=== PATIENT | female | born 1985 | race Caucasian/White ===

== ENCOUNTER → 2017-03-24 | Outpatient (CLI) | payer OTHER ==
[~2017-03-24] MED LIST: ALBUTEROL 0.5ML INH; ALBUTEROL17 GM INH; ALLEGRA-D1 TAB.SR3 PO; BACTRIM DS TABL1 TA1 PO; BENADRYL25 M3 PO; BENTYL20 M1 PO; CARAFATE1 G PO; CIPRO PO; CLONAZEPAM PO; CLONAZEPAM0.5 MG PO; DELTASONE20 MG PO; DIAZEPAM PO; FLEXERIL PO; FLONASE 0.05% N16 GM INH; HYDROCODON-ACE1 EAC7 PO; HYDROCODON-ACE1 EAC9 PO; HYDROCODON-ACE1 EACH PO; KLONOPIN; KLONOPIN0.5 M1 PO; KLONOPIN0.5 MG PO; LEVAQUIN PO; LORTAB 7.51 TAB 7.5/ PO; MOTRIN PO; MOTRIN600 MG PO; MUCINEX FAST-M1 EAC4 PO; MYLANTA PO; NAPROXEN PO; NEXIUM PO; PHENERGAN12.5 MG; PHENERGAN25 MG PO; PREDNISONE PO; PREDNISONE10 MG/DOSE PO; PRENATAL1 TA1 PO; PRILOSEC20 MG PO; PRILOSEC40 MG PO; PROTONIX; PROTONIX PO; ROBAXIN500 MG PO; VICODIN 5/500 T1 TAB PO; VOLTAREN75 MG PO; WELLBUTRIN SR150 MG PO; ZOFRAN ODT4 MG PO; ZOFRAN PO; ZOLOFT50 MG PO
[2017-03-24 12:17] LABS: BASOPHIL# 0.1 X10e3 (0-0.3); EOSINOPHIL# 0.1 X10e3 (0-0.7); EOSINOPHIL% 2.1 % (0.0-7.0); HEMATOCRIT 39.6 % (35.0-45.0); HEMOGLOBIN 13.2 gm/dL (12.0-16.0); LYMPHOCYTE# 2.3 X10e3 (1.0-3.5); LYMPHOCYTE% 41.9 % (17.0-45.0); MEAN CELL VOLUME 92.5 FL (83-96); MEAN CORPUSCULAR HEMOGLOBIN 30.9 PG (28-34); MEAN CORPUSCULAR HGB CONC 33.3 g/dL (30-36); MEAN PLATELET VOLUME 8.8 FL (6.5-11.5); MONOCYTE# 0.5 X10e3 (0-1.0); MONOCYTE% 9.3 % (3.0-12.0); NEUTROPHIL# 2.5 X10e3 (1.5-7.1); NEUTROPHIL% 45.7 % (40-75); PLATELET COUNT 239 X10e3 (140-420); RED BLOOD COUNT 4.27 X10e (3.90-5.30); RED CELL DISTRIBUTION WIDTH 13.2 % (11.0-15.5); WHITE BLOOD COUNT 5.4 X10e3 (4.0-10.5)
[2017-03-24 12:20] LABS: DIFF IND NO
[2017-03-24 13:03] LABS: ALBUMIN SERUM 4.4 g/dL (3.5-5.0); CALCIUM SERUM 9.5 mg/dL (8.4-10.2); CREATININE SERUM 0.7 mg/dL (0.6-1.4); GLOM FILT RATE Estimated 116.3 mL/min (>60); POTASSIUM 4.9 mmol/L (3.5-5.1); PROTEIN TOTAL SERUM 7.2 g/dL (6.0-8.3)
== END | disposition home or self-care (01) ==
LOC: CLAB 11:31
PROVIDERS: Nurse Practitioner
DX: R10.13 Epigastric pain (principal)
CPT/HCPCS: 36415; 80053; 82150; 83690; 85025

== ENCOUNTER 2017-04-02 09:29 | Emergency (ER) | payer OTHER ==
[~2017-04-02 09:29] MED LIST changes: -PHENERGAN12.5 MG; -PROTONIX
[2017-04-02] MEDS ORDERED: PROTONIX (09:41)
[2017-04-02 10:27] LABS: URINE SOURCE CLEAN CATCH
[2017-04-02 10:30] LABS: URINE APPEARANCE CLEAR; URINE BILIRUBIN NEG (NEG); URINE BLOOD 3+ (NEG); URINE COLOR YELLOW; URINE GLUCOSE NEG (NORM); URINE KETONE NEG (NEG); URINE LEUKOCYTE ESTERASE NEG (NEG); URINE NITRATE NEG (NEG); URINE PH 5.5 (5-8); URINE PROTEIN NEG (NEG); URINE SPECIFIC GRAVITY >=1.030 (1.003-1.035); URINE UROBILINOGEN 0.2 MG/DL (NORM)
[2017-04-02 10:31] LABS: MICRO INDICATED? YES
[2017-04-02 10:38] LABS: CULTURE INDICATED? NO; URINE BACTERIA NEG (NEG); URINE RBC 0-2 /[HPF] (0-2); URINE WBC 0-2 /[HPF] (0-5)
[2017-04-02 10:50] LABS: BUN/CREATININE RATIO 11.25; CALCIUM SERUM 8.9 mg/dL (8.4-10.2); CREATININE SERUM 0.8 mg/dL (0.6-1.4); POTASSIUM 3.8 mmol/L (3.5-5.1)
== END 2017-04-02 11:23 | disposition home or self-care (01) ==
LOC: SED 09:29
PROVIDERS: Emergency Medicine
DX: K29.00 Acute gastritis without bleeding (principal); K21.9 Gastro-esophageal reflux disease without esophagitis; F41.9 Anxiety disorder, unspecified; F17.210 Nicotine dependence, cigarettes, uncomplicated; Z90.49 Acquired absence of other specified parts of digestive tract
CPT/HCPCS: 36415; 80048; 81003; 84703; 96361; 96374; 96375; 99284; J2405

== ENCOUNTER 2017-06-24 16:49 | Emergency (ER) | payer OTHER ==
[~2017-06-24 16:49] MED LIST changes: +PROTONIX
[2017-06-24] MEDS ORDERED: PHENERGAN12.5 MG (16:56)
[2017-06-24 18:14] LABS: URINE SOURCE CLEAN CATCH
[2017-06-24 18:16] LABS: URINE APPEARANCE CLEAR; URINE BILIRUBIN NEG (NEG); URINE BLOOD 3+ (NEG); URINE COLOR YELLOW; URINE GLUCOSE NEG (NORM); URINE KETONE NEG (NEG); URINE LEUKOCYTE ESTERASE NEG (NEG); URINE NITRATE NEG (NEG); URINE PROTEIN NEG (NEG); URINE UROBILINOGEN 0.2 MG/DL (NORM)
[2017-06-24 18:23] LABS: MICRO INDICATED? YES
[2017-06-24 18:30] LABS: BASOPHIL# 0.1 X10e3 (0-0.3); EOSINOPHIL# 0.1 X10e3 (0-0.7); EOSINOPHIL% 0.6 % (0.0-7.0); HEMATOCRIT 41.9 % (35.0-45.0); HEMOGLOBIN 14.3 gm/dL (12.0-16.0); LYMPHOCYTE# 2.7 X10e3 (1.0-3.5); LYMPHOCYTE% 30.2 % (17.0-45.0); MEAN CELL VOLUME 92.9 FL (83-96); MEAN CORPUSCULAR HEMOGLOBIN 31.7 PG (28-34); MEAN CORPUSCULAR HGB CONC 34.1 g/dL (30-36); MEAN PLATELET VOLUME 8.6 FL (6.5-11.5); MONOCYTE# 0.6 X10e3 (0-1.0); MONOCYTE% 6.8 % (3.0-12.0); NEUTROPHIL# 5.4 X10e3 (1.5-7.1); NEUTROPHIL% 61.4 % (40-75); PLATELET COUNT 280 X10e3 (140-420); RED BLOOD COUNT 4.51 X10e (3.90-5.30); RED CELL DISTRIBUTION WIDTH 13.1 % (11.0-15.5); WHITE BLOOD COUNT 8.8 X10e3 (4.0-10.5)
[2017-06-24 18:31] LABS: URINE BACTERIA 1+ (NEG); URINE MUCUS PRESENT; URINE SQUAMOUS EPITHELIAL CELL OCCAS /[HPF]; URINE TRANSITIONAL EPI CELLS FEW /[HPF]; URINE WBC 0-2 /[HPF] (0-5)
[2017-06-24 18:33] LABS: DIFF IND NO
[2017-06-24 18:49] LABS: BUN/CREATININE RATIO 18.33; CALCIUM SERUM 8.5 mg/dL (8.4-10.2); CREATININE SERUM 0.6 mg/dL (0.6-1.4); GLOM FILT RATE Estimated 122.3 mL/min (>60); POTASSIUM 3.8 mmol/L (3.5-5.1)
== END 2017-06-24 19:57 | disposition home or self-care (01) ==
LOC: SED 16:49
PROVIDERS: Emergency Medicine
DX: O20.0 Threatened abortion (principal); K21.9 Gastro-esophageal reflux disease without esophagitis; F17.200 Nicotine dependence, unspecified, uncomplicated
CPT/HCPCS: 36415; 80048; 81003; 84702; 85025; 99284

== ENCOUNTER 2017-06-25 13:30 | Emergency (ER) | payer OTHER ==
[~2017-06-25 13:30] MED LIST changes: +PHENERGAN12.5 MG
== END 2017-06-25 14:36 | disposition home or self-care (01) ==
LOC: SED 13:30
DX: O03.9 Complete or unspecified spontaneous abortion without complication (principal); R10.2 Pelvic and perineal pain
CPT/HCPCS: 99283

== ENCOUNTER 2017-06-27 09:58 | Emergency (ER) | payer OTHER ==
[~2017-06-27] VITALS: Ht 165.1 cm; Wt 72.6 kg
== END 2017-06-27 11:56 | disposition home or self-care (01) ==
LOC: SED 09:58
DX: O03.9 Complete or unspecified spontaneous abortion without complication (principal); O99.331 Smoking (tobacco) complicating pregnancy, first trimester; F17.200 Nicotine dependence, unspecified, uncomplicated; Z79.899 Other long term (current) drug therapy; Z3A.01 Less than 8 weeks gestation of pregnancy
CPT/HCPCS: 36415; 84702; 99283